=== PATIENT | female | born 1995 | race Caucasian/White ===

== ENCOUNTER 2021-05-04 18:39 | Emergency (ER) | payer OTHER, SELFPAY ==
[2021-05-04 18:50] VITALS: BP 115/82; PULSE 83; RESP 16; TEMP 36.7; O2SAT 98; BMI 34.9
--- NOTE | 2021-05-04 19:26 | ED.SKABFB ---
HPI - Skin/Abscess/Foreign Bdy General Chief complaint: Skin/Abscess/Foreign Body Stated complaint: Abscess on head Time Seen by Provider: 05/04/21 19:26 Source: patient Mode of arrival: ambulatory Limitations: no limitations History of Present Illness HPI narrative: Patient is a 25-year-old female with no significant past medical history who states she had a scab on the right side of parietal ridge, she is says the scab fell off an as it grew back over the last 2 weeks it has become erythematous, larger, is bleeding and is painful. She denies fevers, headaches dizziness changes in her vision or hearing. Related Data Allergies Allergy/AdvReac Type Severity Reaction Status Date / Time prochlorperazine Allergy Unknown RESLTLESSNE Unverified 05/04/21 18:57 [From COMPAZINE] SS Review of Systems Review of Systems: Yes all other systems are reviewed and are negative [facility] Past Medical History Medical History Asthma Carpal tunnel syndrome COVID PCOS (polycystic ovarian syndrome) Social History Social History Advance Directives: No Advance Directives Information Provided: Yes Patient : No Physical Exam Vital Signs: Vital Signs: Last Vital Signs Temp 98.1 F 05/04/21 18:50 Pulse 83 05/04/21 18:50 Resp 16 05/04/21 18:50 BP 115/82 05/04/21 18:50 Pulse Ox 98 05/04/21 18:50 Body Mass Index 34.9 Const: General: cooperative, healthy appearing, comfortable, no acute distress and well developed Orientation/consciousness: patient oriented x3 Limitations: no limitations HENMT: Head: Yes No palpable skull fracture present, Yes normocephalic and Yes other (Granulation tissue growth on parietal ridge, no bleeding/signs of infection) Ears: hearing grossly normal bilaterally and external ears normal General nose exam: Normal external nose present Face and sinus: Yes normal facial exam Eyes: General: appearance normal, both eyes and all related structures Neck: Neck: Yes normal visual inspection and Yes full ROM Resp: Effort & Inspection: normal respiratory effort and able to speak in complete sentences Skin: General skin exam: no rashes or lesions noted Neuro: General: patient oriented x3 Extrem: General: Yes normal to inspection Course Course Course Narrative: Had Dr. Acevedo examine the patient, he agreed with assessment and plan Discharge Plan Discharge Clinical Impression: Granulation tissue abnormality Patient Disposition: Home, Self-Care Additional Instructions: As discussed, please call our surgical office in the morning to arrange for an appointment for removal of your excess granulation tissue. If you experience any acute change, dizziness, change in your vision or hearing, please return to the emergency department. Referrals: Rowdy Mcdowell MD [Physician] - 1 day (Granulation tissue growth on head, needs excisement)
[2021-05-04 19:47] VITALS: BP 112/68; PULSE 71; RESP 16; TEMP 36.8; O2SAT 99
== END 2021-05-04 19:52 | disposition home or self-care (01) ==
PROVIDERS: Emergency Provider Emergency Medicine Emergency Medical Services; PCP Internal Medicine
DX: L92.9 Granulomatous disorder of the skin and subcutaneous tissue, unspecified (principal)
CPT/HCPCS: 99282; 99284

== ENCOUNTER → 2021-05-12 14:39 | Outpatient (BNVA) | payer OTHER, SELFPAY | PROVIDERS: PCP Internal Medicine; Visit Provider Surgery | DX: R22.0 Localized swelling, mass and lump, head (principal) | CPT/HCPCS: 99202 ==

== ENCOUNTER 2021-06-16 12:35 | Outpatient (REF) | payer OTHER, SELFPAY ==
[2021-06-16 13:24] VITALS: BP 117/75; PULSE 74; RESP 18; TEMP 36.6; O2SAT 99; BMI 32.2
--- NOTE | 2021-06-16 13:51 | W.PM.OPN ---
Operative Note Operative Note Date of Service: 06/16/21 Narrative: Preop diagnosis: Large scalp mass Postop diagnosis: The same Procedure: Excision of large scalp mass under local anesthesia Surgeon: Adrián Newton MD The patient is a 25 year female with note of a large scalp mass. This had increased in size since I saw her in the office. This was about 3 cm in widest diameter, spherical with a narrow base. This was about 1.5 cm tall She understood the technique of excision under local anesthesia and was aware of the risks, benefits, and alternatives She was brought to the minor procedure room and placed in reclining position. The area of the scalp mass was prepped and draped. Lidocaine 1% was used for local anesthesia. An elliptical incision was made around the skin of the base of the mass using blade 15. This was carried down through the full-thickness skin subcutaneous fat to excise entire lesion at the stalk. This was sent as a specimen. I closed this incision with full-thickness nylon 3-0 interrupted sutures. There was good hemostasis afterwards The patient tolerated well there were no complication noted. Bacitracin dressing was applied. Estimated blood loss about 5 cc. She was given wound care instructions.
--- NOTE | 2021-06-16 13:53 | P.BOP_ITS ---
Brief Operative Note Date of Service: 06/16/21 Pre-op diagnosis: Scalp lesion Post-op diagnosis: same Procedure: Excision of scalp lesion Surgeon: Adrián Newton MD Anesthesia: local Was an Research Statistician used for this Procedure?: No Estimated blood loss (mL): 5 Pathology: other (Scalp lesion) Condition: stable Disposition: other (home)
== END 2021-06-16 12:36 | disposition home or self-care (01) ==
LOC: HO.MS 12:35
PROVIDERS: PCP Internal Medicine; Visit Provider Surgery
PROC: (CPT 11423; principal; 2021-06-16 13:00)
DX: L98.0 Pyogenic granuloma (principal)
CPT/HCPCS: 11423; 88305

== ENCOUNTER → 2021-06-29 08:31 | Outpatient (BNVA) | payer OTHER, SELFPAY | PROVIDERS: PCP Internal Medicine; Visit Provider Surgery | DX: Z48.817 Encounter for surgical aftercare following surgery on the skin and subcutaneous tissue (principal); Z87.2 Personal history of diseases of the skin and subcutaneous tissue | CPT/HCPCS: 99212 ==

== ENCOUNTER 2023-06-11 07:29 | Emergency (ER) | payer OTHER, SELFPAY ==
--- NOTE | ~2023-06-11 | XR_ITS ---
EXAMINATION: XR CHEST CLINICAL INFORMATION: Cough. COMPARISON: None available. TECHNIQUE: Frontal view of the chest was obtained. FINDINGS: The lungs are well expanded. No focal consolidation. No pleural effusion. Cardiac silhouette is within normal limits. XR/XR chest 1V IMPRESSION: No acute abnormality.
[2023-06-11 07:33] VITALS: BP 127/82; PULSE 75; RESP 18; O2SAT 100; BMI 33.5
[2023-06-11 07:59] LABS: COVID-19 Test Positive (Negative); IDNOW Serial# BCCEAD1C
--- NOTE | 2023-06-11 09:50 | ED_ITS ---
HPI - URI/Sore Throat General Chief Complaint: Upper Respiratory Symptoms Stated Complaint: chest pressure sob Time Seen by Provider: 06/11/23 09:04 Source: patient Mode of arrival: ambulatory Limitations: no limitations History of Present Illness HPI Narrative: 27-year-old female history of scalp mass, obesity presenting to the emergency department for fatigue, malaise, dry cough, congestion, diffuse headache without visual disturbances or dizziness, myalgias for the past 2 days. Patient states that this feels somewhat like asthma but not improved w/ inhaler, and she is about to run out. Patient reports that she has positive sick contacts. At times has chest pressure/ tighness but no pain. No fevers, or chills reported. Related Data Previous Rx's Medication Instructions Recorded albuterol sulfate 90 mcg/actuation 2 inh inhalation Q4-6H PRN 06/11/23 breath activated powder inhaler shortness of breath or wheezing #1 ea Allergies Allergy/AdvReac Type Severity Reaction Status Date / Time prochlorperazine Allergy Unknown RESLTLESSNE Verified 06/29/21 08:50 [From COMPAZINE] SS Review of Systems Review of Systems: Constitutional : No Weight loss, No Fever, No Chills, + Fatigue, + Malaise ENT/Mouth : No sore throat, No Rhinorrhea, + congestion Eyes: No Eye Pain, No Swelling, No Redness Cardiovascular : No Chest Pain, No SOB, No Dyspnea on Exertion, No Orthopnea, No Edema, No Palpitations Respiratory : + Cough, No Sputum, + Wheezing Gastrointestinal : No Nausea, No Vomiting, No Diarrhea, No Constipation, No abdominal Pain, No Hematochezia, No Melena Genitourinary : No Dysuria, No Urinary Frequency, No Hematuria, Musculoskeletal : No joint pain, No Myalgias, No Joint Swelling Skin : No Skin Lesions, No rash Neuro : No Weakness, No Numbness, No Dizziness, No Headache Psych : No Anxiety/Panic, No Depression All other systems reviewed and are negative Yes all other systems are reviewed and are negative [facility] Past Medical History Attestation statement: The following information was validated with the patient. Source: old records reviewed and nursing notes reviewed Medical History Scalp mass COVID Carpal tunnel syndrome Asthma PCOS (polycystic ovarian syndrome) Surgical History History of excision of mass History of gastric surgery History of cholecystectomy Family History Family History Other Breast cancer Cervical cancer Ovarian cancer Social History Social History Advance Directives: No Advance Directives Information Provided: Yes Physical Exam Vital Signs: Vital Signs: Last Vital Signs Pulse 75 06/11/23 07:33 Resp 18 06/11/23 07:33 BP 127/82 06/11/23 07:33 Pulse Ox 100 06/11/23 07:33 O2 Del Method Room Air 06/11/23 07:33 BMI result Body Mass Index 33.5 vss Appearance: Alert.? Oriented X3.? No acute distress.? Head: Normocephalic, atraumatic, no step-offs or deformities Eyes: Pupils equal, round and reactive to light.? Neck: Normal inspection.? Neck supple.? CVS: Normal heart rate and rhythm.? Pulses normal.? Respiratory: No respiratory distress.? Breath sounds normal.? Abdomen: Soft and nontender.? Skin: Skin warm and dry.? Normal skin color.? Normal skin turgor.? Extremities: No lower extremity edema.? No calf ttp. 5/5 strength to bilateral upper and lower extremities Neuro: Oriented X 3.? No motor deficit.? No sensory deficit. CN 2-12 intact Medical Decision Making Medical Decision Making [facility] Narrative: [id number] 27-year-old female presents with URI symptoms since last 06/02 reports recent sick contacts with COVID positive people physical exam benign. Patient well appearing. Nontoxic likely viral illness versus COVID-19 versus sinusitis. Unlikely PE, pneumonia, respiratory distress. History and physical exam not consistent with ACS plan at this time patient had COVID test done from triage which was positive educated on supportive measures, patient not a candidate for antiviral. X-ray without pneumonia. No indication for antibiotics. Will refill her albuterol inhaler as she is running low. Educated patient on diagnosis and treatment plan, answered all question, patient verbalizes understanding. At this time patient will be discharged home, advised to return with new or worsening symptoms. Educated on worrisome signs and symptoms and when to return. At this time I feel comfortable discharge home. Differential Diagnosis Differential Diagnoses: The differential diagnosis associated with the presentation includes likely viral illness versus COVID-19 versus sinusitis. Unlikely PE, pneumonia, respiratory distress. History and physical exam not consistent with ACS Admission/Observation Consideration of admission/observation: Escalation of care including admission/observation considered Lab Data MDM Lab Attestation statement: I reviewed the patient's lab results. Labs: Lab Results 06/11/23 Range/Units 07:43 COVID-19 ([facility]) Positive A (Negative) COVID-19 Clin Com See Note Independent Interpretation I performed an independent interpretation of an: Plain X-Ray (XR/XR chest 1V IMPRESSION: No acute abnormality. ) Radiology Impression Discussion of test interpretation with radiology: I have reviewed the radiologist's reading. Core Measures AMI core measures followed: Yes Measure exclusions: not indicated Critical Care Time Critical Care Time Critical Care Time: No Discharge Plan Discharge Clinical Impression: COVID-19 Patient Disposition: Home, Self-Care Instructions: COVID-19 (Coronavirus Disease 2019) (ED) Additional Instructions: Take your medications as prescribed. If you were prescribed antibiotics today, it is important that you take your medication to their entirety, do not skip any doses, do not finish them early. Follow-up with your primary care provider this week. Return to the emergency department with new or worsening symptoms. Such as fevers, chills, chest pain, shortness of breath, nausea, vomiting, dizziness, headache, vision changes, lethargy In case of emergency call 911 XR/XR chest 1V IMPRESSION: No acute abnormality. Prescriptions: New albuterol sulfate 90 mcg/actuation aerosol powdr breath activated 2 inh inhalation Q4-6H PRN (Reason: shortness of breath or wheezing) Qty: 1 0RF Referrals: Chloé Lloyd MD [Primary Care Provider] - 2 days Stand Alone Forms: Work/School Release Interventions: ED Discharge Assessment Last Done: 06/11/23 09:39 Discharge Date/Time: 06/11/23 09:39
== END 2023-06-11 09:39 | disposition home or self-care (01) ==
PROVIDERS: Emergency Provider Student in an Organized Health Care Education/Training Program; PCP Internal Medicine
DX: U07.1 COVID-19 (principal); R07.89 Other chest pain; R06.02 Shortness of breath
CPT/HCPCS: 71045; 87635; 99282; 99283